=== PATIENT | male | born 2000 | race Caucasian/White ===

== ENCOUNTER 2019-06-29 13:47 | Emergency (ER) | payer OTHER ==
[2019-06-29] MEDS: HYDROCODONE/APAP (10/325) TAB PO (15:25)
[2019-06-29] MEDS: ONDANSETRON (ODT) 4 MG TAB ODT (15:25)
== END 2019-06-29 16:03 | disposition home or self-care (01) ==
LOC: FTE 13:47
DX: G44.309 Post-traumatic headache, unspecified, not intractable (principal)
CPT/HCPCS: 99283; Z7502